=== PATIENT | male | born 1985 ===

== ENCOUNTER 2017-01-05 01:31 | Emergency (ER) | payer MEDICAID, OTHER ==
[2017-01-05 01:44] VITALS: BP 148/94; PULSE 121; RESP 22; TEMP 98.4; O2SAT 99
--- NOTE | 2017-01-05 02:18 | ED PDOC ---
HPI: Psych/Substance Abuse Time Seen by Provider: 01/05/17 01:46 Chief Complaint (Nursing): Palpitations Chief Complaint (Provider): Anxiety History Per: Patient, Family (mother) History/Exam Limitations: no limitations Onset/Duration Of Symptoms: Days (x2) Current Symptoms Are (Timing): Still Present Additional Complaint(s): Miguel A Abel is a 31 year old male with previous history of alcohol use, who presents to the emergency department accompanied by his mother, for an evaluation after feeling anxious for 2 days. Stated he had been binge drinking and was unable to sleep tonight, in which he purchased and ingested half a tablet of Roxicodone from a street dealer. Pt denies suicidal ideation, but admits to feeling depressed. PMD: none provided Past Medical History Reviewed: Historical Data, Nursing Documentation, Vital Signs Vital Signs: Last Vital Signs Temp 98.4 F 01/05/17 01:42 Pulse 121 H 01/05/17 01:42 Resp 22 01/05/17 01:42 BP 148/94 H 01/05/17 01:42 Pulse Ox 99 01/05/17 01:42 - Medical History PMH: Anxiety, Depression - Family History Family History: States: Unknown Family Hx - Social History Current smoker - smoking cessation education provided: Yes Alcohol: > 2 Drinks/Day Drugs: Denies - Allergies Allergies/Adverse Reactions: Allergies Allergy/AdvReac Type Severity Reaction Status Date / Time No Known Allergies Allergy Verified 01/05/17 01:48 Review of Systems ROS Statement: Except As Marked, All Systems Reviewed And Found Negative Psych: Positive for: Anxiety, Depression, Suicidal ideation (per mother) Physical Exam - Reviewed Nursing Documentation Reviewed: Yes Vital Signs Reviewed: Yes - Physical Exam Appears: Positive for: Non-toxic, No Acute Distress Head Exam: Positive for: ATRAUMATIC, NORMAL INSPECTION, NORMOCEPHALIC Skin: Positive for: Normal Color, Warm, DRY Cardiovascular/Chest: Positive for: Regular Rate, Rhythm Respiratory: Positive for: CNT, Normal Breath Sounds Neurologic/Psych: Positive for: Alert, floor runner II-XII, Oriented, Mood/Affect ( anxious and tearful) - Laboratory Results Result Diagrams: 01/05/17 02:20 01/05/17 02:20 - ECG O2 Sat by Pulse Oximetry: 99 (RA) Pulse Ox Interpretation: Normal Medical Decision Making Medical Decision Making: Initial Impression: Acute depression; ETOH abuse Initial Plan: * EKG * Acetaminophen * Alcohol serum * Labs * Drug screen * Salicylate * Crisis evaluation * PTT * Patient * Accucheck * Re-evaluation 3AM Labs reviewed no clinically significant abnormalities Patient evalauted by crisis and is stable for discharge home Dx Alcohol induced mood disorder Stable FU [facility] in 2 days Scribe Attestation: Documented by Delmy Fan, acting as a scribe for Melvin Fowler MD. Provider Scribe Attestation: All medical record entries made by the Scribe were at my direction and personally dictated by me. I have reviewed the chart and agree that the record accurately reflects my personal performance of the history, physical exam, medical decision making, and the department course for this patient. I have also personally directed, reviewed, and agree with the discharge instructions and disposition. Disposition - Clinical Impression Clinical Impression: Alcoholism - Disposition Referrals: [facility] [Outside] [facility] [Outside] Disposition Time: 03:00 Condition: STABLE Instructions: Alcohol Use Disorder (ED)
[2017-01-05 02:24] LABS: BASO % 0.4 % (0.0-2.0); EOS % 0.4 % (0.0-4.0); HEMOGLOBIN 16.1 g/dL (12.0-18.0); LYMPH % 31.1 % (20.0-40.0); MEAN CELL VOLUME 93.7 fl (80.0-94.0); MEAN CORPUSCULAR HEMOGLOBIN 32.7 pg (27.0-31.0); MEAN CORPUSCULAR HGB CONC 34.9 g/dL (33.0-37.0); MEAN PLATELET VOLUME 8.6 fl (7.2-11.7); MONO # 0.7 K/uL (0.0-0.8); MONO % 7.6 % (0.0-10.0); NEUT # 5.8 K/uL (1.8-7.0); NEUT % 60.5 % (50.0-75.0); RBC 4.92 Mil/uL (4.40-5.90); RED CELL DISTRIBUTION WIDTH 12.5 % (11.5-14.5); WHITE BLOOD COUNT 9.5 K/uL (4.8-10.8)
[2017-01-05 02:38] LABS: ALB/GLOB RATIO 1.4 (1.0-2.1); ALBUMIN 4.9 g/dL (3.5-5.0); ALT/SGPT 41 U/L (21-72); AST/SGOT 31 U/L (17-59); BLOOD UREA NITROGEN 10 mg/dl (9-20); CALCIUM 9.4 mg/dL (8.4-10.2); GFR AFRICAN-AMERICAN > 60; GFR NON-AFRICAN AMERICAN > 60
--- NOTE | 2017-01-05 23:25 | CARD ---
APPROVED REPORT EKG Measurement Heart [id number] <Conclusion> Sinus tachycardia Voltage criteria for left ventricular hypertrophy Abnormal ECG
== END 2017-01-05 03:15 | disposition home or self-care (01) ==
LOC: H.ER 01:31
DX: F13.10 Sedative, hypnotic or anxiolytic abuse, uncomplicated (principal); F19.10 Other psychoactive substance abuse, uncomplicated; F10.20 Alcohol dependence, uncomplicated; F41.9 Anxiety disorder, unspecified; Z86.59 Personal history of other mental and behavioral disorders

== ENCOUNTER 2017-09-12 01:42 | Emergency (ER) | payer MEDICAID ==
[2017-09-12 01:53] VITALS: RESP 16; O2SAT 89
[2017-09-12] MEDS ORDERED: Sodium Chloride 0.9% 1,000 ML IV STA ×2 (02:00→03:09)
--- NOTE | 2017-09-12 02:22 | ED PDOC ---
HPI: Psych/Substance Abuse Time Seen by Provider: 09/12/17 01:43 Chief Complaint (Nursing): Substance Abuse Chief Complaint (Provider): Substance Abuse ED Caveat: Intoxicated History Per: EMS, Family (Mother) Additional Complaint(s): 32 y/o male with past medical history of substance abuse disorder presents to the ED via EMS for evaluation of overdose on oxycodone with alcohol and marijuana. Patient was given narcan in field with improvement. On arrival to ED he is aroused. Past Medical History Reviewed: Historical Data, Nursing Documentation, Vital Signs Vital Signs: Last Vital Signs Temp Pulse 92 H 09/12/17 01:47 Resp 16 09/12/17 01:47 BP 147/95 H 09/12/17 01:47 Pulse Ox 89 L 09/12/17 01:47 - Medical History PMH: Anxiety, Depression Other PMH: Substance abuse disorder - Surgical History Surgical History: No Surg Hx - Family History Family History: States: Unknown Family Hx - Allergies Allergies/Adverse Reactions: Allergies Allergy/AdvReac Type Severity Reaction Status Date / Time No Known Allergies Allergy Verified 01/05/17 01:48 Review of Systems Review Of Systems: ROS cannot be obtained secondary to pt's inabilty to answer questions. (Cannot be obtained as the patient is intoxicated) Physical Exam - Reviewed Nursing Documentation Reviewed: Yes Vital Signs Reviewed: Yes - Physical Exam Appears: Positive for: No Acute Distress Head Exam: Positive for: ATRAUMATIC, NORMAL INSPECTION, NORMOCEPHALIC Skin: Positive for: Normal Color, Warm, Dry Eye Exam: Positive for: Other (Pupils dilated 4mm bilaterally) ENT: Positive for: Normal ENT Inspection Neck: Positive for: Normal, Painless ROM, Supple Cardiovascular/Chest: Positive for: Tachycardia. Negative for: Murmur Respiratory: Positive for: Normal Breath Sounds. Negative for: Accessory Muscle Use, Respiratory Distress Gastrointestinal/Abdominal: Positive for: Normal Exam, Bowel Sounds, Soft. Negative for: Tenderness Back: Positive for: Normal Inspection Extremity: Positive for: Normal ROM. Negative for: Deformity Neurologic/Psych: Positive for: Other (Patient is somniac but aroused) - Laboratory Results Result Diagrams: 09/12/17 02:19 09/12/17 03:14 - ECG O2 Sat by Pulse Oximetry: 89 (RA) Pulse Ox Interpretation: Normal - Critical Care Total Time (In Min): 30 Medical Decision Making Medical Decision Making: Time: 01:58 Initial Impression: 32 y/o male with overdose Plan: EKG Acetaminophen Alcohol serum Drug screen Salicylate CBC w/ differential PTT Prothrombin time Sodium chloride 1L IV Heplock insertion urinalysis Reevaluation Time: 06:05 Upon provider reevaluation patient is alert and oriented with steady gait. Patient is feeling better, is medically stable, and requires no further treatment in the ED at this time. Patient will be discharged home. Counseling was provided and all questions were answered regarding diagnosis. There is agreement to discharge plan. Return if symptoms persist or worsen. Clinical Impression: Polysubstance abuse, opiate overdose Scribe Attestation: Documented by Alfreda Breen acting as a scribe for Melvin Fowler MD. Scribe Attestation: All medical record entries made by the Scribe were at my direction and personally dictated by me. I have reviewed the chart and agree that the record accurately reflects my personal performance of the history, physical exam, medical decision making, and the department course for this patient. I have also personally directed, reviewed, and agree with the discharge instructions and disposition. Disposition - Clinical Impression Clinical Impression: Polysubstance abuse, Opiate overdose - Disposition Disposition: Routine/Home Disposition Time: 06:05 Condition: STABLE Instructions: Narcotic Overdose Forms: [employer] ([employer])
[2017-09-12 02:23] LABS: BASO # 0.1 K/uL (0.0-0.2); BASO % 0.5 % (0.0-2.0); EOS # 0.1 K/uL (0.0-0.7); EOS % 1.4 % (0.0-4.0); HEMOGLOBIN 16.3 g/dL (12.0-18.0); LYMPH # 5.9 K/uL (1.0-4.3); LYMPH % 57.9 % (20.0-40.0); MEAN CELL VOLUME 95.7 fl (80.0-94.0); MEAN CORPUSCULAR HEMOGLOBIN 31.8 pg (27.0-31.0); MEAN CORPUSCULAR HGB CONC 33.2 g/dL (33.0-37.0); MEAN PLATELET VOLUME 9.4 fl (7.2-11.7); MONO # 0.6 K/uL (0.0-0.8); MONO % 5.5 % (0.0-10.0); NEUT # 3.5 K/uL (1.8-7.0); NEUT % 34.7 % (50.0-75.0); NRBC % 0.2 % (0.0-0.0); RBC 5.14 Mil/uL (4.40-5.90); RED CELL DISTRIBUTION WIDTH 12.9 % (11.5-14.5); WHITE BLOOD COUNT 10.1 K/uL (4.8-10.8)
[2017-09-12 02:59] LABS: PROTHROMBIN TIME 10.5 Seconds (9.8-13.1)
[2017-09-12 03:00] LABS: PARTIAL THROMBOPLASTIN TIME 35.1 Seconds (25.6-37.1)
[2017-09-12 03:24] LABS: ALB/GLOB RATIO 1.3 (1.0-2.1); ALBUMIN 4.8 g/dL (3.5-5.0); ALT/SGPT 49 U/L (21-72); AST/SGOT 59 U/L (17-59); BLOOD UREA NITROGEN 9 mg/dl (9-20); CALCIUM 8.8 mg/dL (8.4-10.2); GFR AFRICAN-AMERICAN > 60; GFR NON-AFRICAN AMERICAN > 60
[2017-09-12 06:14] VITALS: BP 105/63; PULSE 99
[2017-09-12 06:29] LABS: URINE BACTERIA RARE (<OCC); URINE BILIRUBIN NEGATIVE (NEGATIVE); URINE BLOOD NEGATIVE (NEGATIVE); URINE CLARITY SLIGHTY-CLOUDY (Clear); URINE COLOR YELLOW (YELLOW); URINE GLUCOSE (UA) 50 mg/dL (Normal); URINE LEUKOCYTE ESTERASE NEG Leu/uL (Negative); URINE PROTEIN NEGATIVE (NEGATIVE); URINE UROBILINOGEN 0.2-1.0 mg/dL (0.2-1.0)
[2017-09-12 06:41] LABS: BARBITURATES, UR NEGATIVE (NEGATIVE); BENZODIAZEPINES, UR POSITIVE (NEGATIVE); OPIATES, UR NEGATIVE (NEGATIVE); PHENCYCLIDINE, UR NEGATIVE (NEGATIVE)
--- NOTE | 2017-09-12 09:37 | CARD ---
APPROVED REPORT EKG Measurement Heart [id number] <Conclusion> Normal sinus rhythm Normal ECG
== END 2017-09-12 06:22 | disposition home or self-care (01) ==
LOC: H.ER 01:42
DX: T40.2X1A Poisoning by other opioids, accidental (unintentional), initial encounter (principal); F32.9 Major depressive disorder, single episode, unspecified; F41.9 Anxiety disorder, unspecified
CPT/HCPCS: 80053; 80320; 80324; 80329; 80345; 80346; 80349; 80353; 80358; 80361; 81003; 82948; 83992; 85025; 85610; 85730; 93005; 96360; 96361; 99285; J7040

== ENCOUNTER 2018-02-22 05:36 | Emergency (ER) | payer MEDICAID ==
[2018-02-22 06:06] VITALS: TEMP 98
--- NOTE | 2018-02-22 06:33 | ED PDOC ---
HPI: Psych/Substance Abuse Time Seen by Provider: 02/22/18 05:40 Chief Complaint (Nursing): Substance Abuse Chief Complaint (Provider): substance abuse History Per: Patient History/Exam Limitations: no limitations Onset/Duration Of Symptoms: Hrs (last night) Additional Complaint(s): Miguel A Abel is a 32 year old male, with a known history of substance abuse, who was brought to the emergency department by EMS for substance abuse. Patient reports taking 10mg of Oxycodone with Xanax last night approximately at 22:00. His brother found him asleep, slapped on his head and called 911. Mother at bedside insisted he should accept detox referral. Patient denies any suicidal or homicidal ideation. No further medical complaints at this time. PMD: None provided. Past Medical History Reviewed: Historical Data, Nursing Documentation, Vital Signs Vital Signs: Last Vital Signs Temp 98.0 F 02/22/18 06:03 Pulse 101 H 02/22/18 06:03 Resp 15 02/22/18 06:03 BP 136/74 02/22/18 06:03 Pulse Ox 100 02/22/18 06:03 - Medical History PMH: Anxiety, Depression - Surgical History Surgical History: No Surg Hx - Family History Family History: States: Unknown Family Hx - Social History Current smoker - smoking cessation education provided: No Alcohol: > 2 Drinks/Day Drugs: Prescription medications - Allergies Allergies/Adverse Reactions: Allergies Allergy/AdvReac Type Severity Reaction Status Date / Time No Known Allergies Allergy Verified 02/22/18 06:06 Review of Systems ROS Statement: Except As Marked, All Systems Reviewed And Found Negative Physical Exam - Reviewed Nursing Documentation Reviewed: Yes Vital Signs Reviewed: Yes - Physical Exam Appears: Positive for: No Acute Distress Head Exam: Positive for: ATRAUMATIC, NORMAL INSPECTION, NORMOCEPHALIC Skin: Positive for: Normal Color, Warm, Dry Eye Exam: Positive for: Normal appearance, EOMI, PERRL Neck: Positive for: Painless ROM Cardiovascular/Chest: Positive for: Regular Rate, Rhythm. Negative for: Murmur Respiratory: Positive for: Normal Breath Sounds. Negative for: Respiratory Distress Gastrointestinal/Abdominal: Positive for: Normal Exam, Soft. Negative for: Tenderness Back: Positive for: Normal Inspection Extremity: Positive for: Normal ROM (upper and lower extremities). Negative for : Deformity, Swelling Neurologic/Psych: Positive for: Alert, Oriented - ECG O2 Sat by Pulse Oximetry: 100 (RA) Pulse Ox Interpretation: Normal Medical Decision Making Medical Decision Making: Time: 05:40 Initial Impression: 32 y/o male with polysubstance abuse. Initial plan: --Reevaluation 06:30 --bottom worker provided patient with referral information. Patient is medically stable for discharge. Provider reinforced need to patient to actively seek out and engage in detox program. ----- Scribe Attestation: Documented by Ryan Diaz, acting as a scribe for Melvin Fowler MD. Provider Scribe Attestation: All medical record entries made by the Scribe were at my direction and personally dictated by me. I have reviewed the chart and agree that the record accurately reflects my personal performance of the history, physical exam, medical decision making, and the department course for this patient. I have also personally directed, reviewed, and agree with the discharge instructions and disposition. Disposition - Clinical Impression Clinical Impression: Polysubstance abuse - Disposition Disposition: Routine/Home Disposition Time: 06:30 Condition: STABLE Instructions: Drug Abuse and Drug Addiction (DC), Drug Abuse Treatment Forms: [employer] (Portuguese)
[2018-02-22 06:40] VITALS: BP 123/72; PULSE 79; RESP 16
[2018-02-22 06:56] VITALS: O2SAT 100
== END 2018-02-22 06:41 | disposition home or self-care (01) ==
LOC: H.ER 05:36
DX: F19.10 Other psychoactive substance abuse, uncomplicated (principal); F32.9 Major depressive disorder, single episode, unspecified; F41.9 Anxiety disorder, unspecified

== ENCOUNTER 2018-03-06 04:41 | Emergency (ER) | payer MEDICAID ==
[2018-03-06 04:54] VITALS: O2SAT 98
--- NOTE | 2018-03-06 06:29 | ED PDOC ---
HPI: Psych/Substance Abuse Time Seen by Provider: 03/06/18 05:06 Chief Complaint (Nursing): Substance Abuse ED Caveat: Intoxicated History Per: Patient, Family Current Symptoms Are (Timing): Still Present Modifying Factor(s): Marijuana, Narcotics Additional Complaint(s): Patient brought in by brother and mother for supposed drug abuse. Patient states he took 30mg of oxycodone at 9PM last night, states he took it to go to sleep. Brother states that he takes it everyday to get high and today he was barely arousable, prompting him to bring him to the ER. Patient denies alcohol or other drugs. Past Medical History Reviewed: Historical Data, Nursing Documentation, Vital Signs Vital Signs: Last Vital Signs Temp 98.9 F 03/06/18 04:50 Pulse 82 03/06/18 04:50 Resp 18 03/06/18 04:50 BP 126/84 03/06/18 04:50 Pulse Ox 98 03/06/18 04:50 - Medical History PMH: Anxiety, Depression - Family History Family History: States: Unknown Family Hx - Allergies Allergies/Adverse Reactions: Allergies Allergy/AdvReac Type Severity Reaction Status Date / Time No Known Allergies Allergy Verified 02/22/18 06:06 Review of Systems Review Of Systems: ROS cannot be obtained secondary to pt's inabilty to answer questions. Physical Exam - Reviewed Nursing Documentation Reviewed: Yes Vital Signs Reviewed: Yes - Physical Exam Appears: Positive for: Non-toxic, No Acute Distress. Negative for: Well ( Patient drowsy, falling asleep during exam, protecting airway) Head Exam: Positive for: ATRAUMATIC, NORMAL INSPECTION, NORMOCEPHALIC Skin: Positive for: Normal Color, Warm, DRY Eye Exam: Positive for: Normal appearance, EOMI. Negative for: PERRL ( constricted pupils) ENT: Positive for: Normal ENT Inspection Neck: Positive for: Normal, Painless ROM Cardiovascular/Chest: Positive for: Regular Rate, Rhythm Respiratory: Positive for: CNT, Normal Breath Sounds Gastrointestinal/Abdominal: Positive for: Normal Exam, Soft. Negative for: Tenderness Back: Positive for: Normal Inspection Extremity: Positive for: Normal ROM Neurologic/Psych: Positive for: link trainer mechanic II-XII, Oriented. Negative for: Alert ( Drowsy), Motor/Sensory Deficits - Laboratory Results Result Diagrams: 03/06/18 06:30 03/06/18 06:30 - ECG O2 Sat by Pulse Oximetry: 98 Pulse Ox Interpretation: Normal Medical Decision Making Medical Decision Makin Patient with drug abuse presenting to ER Currently protecting airway, not hypoxic or bradypneic Not requiring narcan at this time [address] Burch pending re-eval and sobriety Disposition - Clinical Impression Clinical Impression: Opiate abuse, episodic - Patient ED Disposition Is Patient to be Admitted: Transfer of Care - Disposition Disposition: Transfer of Care Disposition Time: 07:00 Condition: STABLE Forms: [facility] (Moldovan) Patient Signed Over To: Raymond Burch Handoff Comments: pending sobriety
[2018-03-06 06:34] LABS: BASO % 0.2 % (0.0-2.0); EOS # 0.1 K/uL (0.0-0.7); EOS % 0.4 % (0.0-4.0); LYMPH # 1.8 K/uL (1.0-4.3); LYMPH % 13.8 % (20.0-40.0); MEAN CELL VOLUME 94.6 fl (80.0-94.0); MEAN CORPUSCULAR HEMOGLOBIN 31.7 pg (27.0-31.0); MEAN CORPUSCULAR HGB CONC 33.5 g/dL (33.0-37.0); MEAN PLATELET VOLUME 8.7 fl (7.2-11.7); MONO # 0.6 K/uL (0.0-0.8); MONO % 4.4 % (0.0-10.0); NEUT # 10.8 K/uL (1.8-7.0); NEUT % 81.2 % (50.0-75.0); RBC 4.43 Mil/uL (4.40-5.90); RED CELL DISTRIBUTION WIDTH 12.8 % (11.5-14.5); WHITE BLOOD COUNT 13.4 K/uL (4.8-10.8)
[2018-03-06 06:43] LABS: ACETAMINOPHEN < 10.0 ug/ml (10.0-30.0); SALICYLATE < 1.0 mg/dl
[2018-03-06 06:44] LABS: BLOOD UREA NITROGEN 17 mg/dl (9-20); CALCIUM 8.5 mg/dL (8.4-10.2); GFR NON-AFRICAN AMERICAN > 60
--- NOTE | 2018-03-06 07:33 | ED PDOC ---
- Laboratory Results Result Diagrams: 03/06/18 06:30 03/06/18 06:30 - ECG O2 Sat by Pulse Oximetry: 98 (RA) Pulse Ox Interpretation: Normal - Progress Re-evaluation Time: 08:19 Condition: Improved (Awake alert oriented x 3 No focal neuro deficits. Denies SI /HI) Medical Decision Making Medical Decision Making: Time: 0700 -- Patient endorsed to me by Dr. De Paz, pending sobriety. Scribe Attestation: Documented by Jm Dixon acting as a scribe for Raymond Burch MD. Provider Scribe Attestation: All medical record entries made by the Scribe were at my direction and personally dictated by me. I have reviewed the chart and agree that the record accurately reflects my personal performance of the history, physical exam, medical decision making, and the department course for this patient. I have also personally directed, reviewed, and agree with the discharge instructions and disposition. Disposition - Clinical Impression Clinical Impression: Opiate abuse, episodic - POA Present On Arrival: None - Disposition Referrals: [facility] [Outside] Disposition: Routine/Home Disposition Time: 08:19 Condition: FAIR Instructions: Prescription Drug Abuse (DC) Forms: [employer] (Spanish)
[2018-03-06 08:38] VITALS: BP 128/76; PULSE 78; RESP 19; TEMP 97
[2018-03-06 08:48] LABS: BARBITURATES, UR NEGATIVE (NEGATIVE); BENZODIAZEPINES, UR POSITIVE (NEGATIVE); OPIATES, UR POSITIVE (NEGATIVE); PHENCYCLIDINE, UR NEGATIVE (NEGATIVE)
== END 2018-03-06 08:39 | disposition home or self-care (01) ==
LOC: H.ER 04:41
DX: F11.10 Opioid abuse, uncomplicated (principal); Z86.59 Personal history of other mental and behavioral disorders